=== PATIENT | male | born 1965 | race Caucasian/White ===

== ENCOUNTER 2016-12-27 06:04 | Day surgery (SDC) | payer OTHER ==
--- NOTE | ~2016-12-27 | EGD ---
EGD REPORT [facility] [address] [address] NAME: DEX KOTHARI : 65 STATUS : REG [facility] [place] PAT#: [id number] AGE: 51 ADM/REG DATE : 12/27/16 MR#: [id number] REPORT SERV DATE: 12/27/16 DICTATED BY: KYLE ALFONSO DATE: 12/27/16 REPORT STATUS : Draft TRANSCRIBED BY: [facility] DATE: 12/27/16 Endoscopy Center Patient Name: Dex Kothari Date of : 1965 Attending MD: KYLE ALFONSO MD Procedure Date No Time: 12/27/2016 Procedure: Colonoscopy Indications: Screening for colorectal malignant neoplasm Referring MD: Portia Sosa Medicines: Propofol per Anesthesia Complications: No immediate complications. Procedure: Pre-Anesthesia Assessment: - ASA Grade Assessment: I - A normal, healthy patient. After I obtained informed consent, the scope was passed under direct vision. Throughout the procedure, the patient's blood pressure, pulse, and oxygen saturations were monitored continuously. The CF [id number] was introduced through the anus and advanced to the cecum, identified by appendiceal orifice and ileocecal valve. The colonoscopy was performed without difficulty. The patient tolerated the procedure well. The quality of the bowel preparation was good. Findings: The perianal and digital rectal examinations were normal. Many medium-mouthed diverticula were found in the recto-sigmoid colon, in the sigmoid colon and in the descending colon. Internal hemorrhoids were found during retroflexion and were Grade I (internal hemorrhoids that do not prolapse). The rest of the colon was normal. Impression: - Diverticulosis in the recto-sigmoid colon, in the sigmoid colon and in the descending colon. - Internal hemorrhoids. Recommendation: - Discharge patient to home (ambulatory). - Repeat colonoscopy in 10 years for screening purposes. Procedure Code(s): --- Professional --- G0121, Colorectal cancer screening; colonoscopy on individual not meeting criteria for high risk Diagnosis Code(s): --- Professional --- K64.0, First degree hemorrhoids K57.30, Diverticulosis of large intestine without EGD REPORT [address] [address] NAME: DEX KOTHARI : 65 STATUS : REG [facility] [place] PAT#: [id number] AGE: 51 ADM/REG DATE : 12/27/16 MR#: [id number] REPORT SERV DATE: 12/27/16 DICTATED BY: KYLE ALFONSO. DATE: 12/27/16 REPORT STATUS : Draft TRANSCRIBED BY: [employer] DATE: 12/27/16 perforation or abscess without bleeding Z12.11, Encounter for screening for malignant neoplasm of colon CPT copyright 2013 [employer]. All rights reserved. The codes documented in this report are preliminary and upon theoretical physicist review may be revised to meet current compliance requirements. Kyle Alfonso MD KYLE ALFONSO MD 12/27/2016 8:01 AM This report has been signed electronically. Number of Addenda: 0 Note Initiated On: 12/27/2016 7:39 AM Scope Withdrawal Time 0 hours 8 minutes 38 seconds
[~2016-12-27 06:04] MED LIST: ADVIL PO
== END 2016-12-27 23:59 | disposition home or self-care (01) ==
LOC: DMU 06:04
PROVIDERS: Internal Medicine Gastroenterology
PROC: 0DJD8ZZ Inspection of Lower Intestinal Tract, Via Natural or Artificial Opening Endoscopic (ICD-10-PCS; principal; 2016-12-27 07:30)
DX: Z12.11 Encounter for screening for malignant neoplasm of colon (principal); K64.0 First degree hemorrhoids; K57.30 Diverticulosis of large intestine without perforation or abscess without bleeding; K64.8 Other hemorrhoids; Z87.442 Personal history of urinary calculi